=== PATIENT | female | born 1995 | race Two or more races ===

== ENCOUNTER 2018-09-11 14:33 | Inpatient (IN) | payer MEDICAID ==
[~2018-09-11] VITALS: Ht 172.7 cm; Wt 92.1 kg
[2018-09-11] MEDS ORDERED: PRENATAL (14:41)
[2018-09-11 17:22] LABS: CLARITY URINE CLEAR (CLEAR); COLOR URINE YELLOW (YELLOW); KETONES URINE NEGATIVE (NEGATIVE); LEUKOCYTE ESTERASE URINE 1+ (NEGATIVE); NITRITE URINE NEGATIVE (NEGATIVE); OCCULT BLOOD URINE NEGATIVE (NEGATIVE); PH URINE 7.5 (4.5-8.0); PROTEIN URINE NEGATIVE (NEGATIVE); SPECIFIC GRAVITY URINE 1.006 (1.005-1.030); UROBILINOGEN URINE 0.2 E.U./dL (0.2-1.0)
[2018-09-11 17:46] LABS: BASOPHILS % 0.2 % (0.0-2.0); HEMATOCRIT. 32.9 % (36.0-48.0); HEMOGLOBIN. 11.3 g/dL (12.0-16.0); LYMPHOCYTES % 14.4 % (20.0-50.0); MEAN CORPUSCULAR HEMOGLOBIN 29.4 pg (28.0-32.0); MEAN CORPUSCULAR VOLUME 86.1 fL (81.0-99.0); MEAN PLATELET VOLUME 9.8 fl (7.4-10.4); MONOCYTES % 6.2 % (2.0-8.0); NEUTROPHILS % 78.2 % (40.0-76.0); PLATELET 237 x1000/uL (130-400); RED BLOOD CELL COUNT 3.82 mill/uL (4.2-5.4)
[2018-09-11 17:53] LABS: CHLORIDE 110 mEq/L (98-107)
[2018-09-11 17:55] LABS: HCG SCREEN POSITIVE
[2018-09-11 18:16] LABS: B-HCG QUANTITATIVE 51509 mIU/mL (<3)
[2018-09-11] MEDS ORDERED: CEFTRIAXONE 1 G PREMIX 50 ML IV SCH (20:00)
[2018-09-12 02:00] VITALS: BP 145/72
[2018-09-12] MEDS ORDERED: DEXT 5%/LACTATED RINGERS 1,000 ML IV SCH (02:30)
[2018-09-12] MEDS ORDERED: BUTORPHANOL TARTRATE 2 MG/ML VIAL IV PRN (02:30)
[2018-09-12] MEDS: DEXT 5%/LR + PITOCIN 20UNITS/L 1,000 ML IV SCH ×2 (03:56→12:06)
[2018-09-12] MEDS ORDERED: MISOPROSTOL 200MCG TABLET PO NR (04:00)
[2018-09-12 04:10] VITALS: BP 144/70
[2018-09-12 05:00] VITALS: BP 133/72
[2018-09-12] MEDS ORDERED: METRONIDAZOLE 500 MG PREMIX 100 ML IV SCH (09:30)
[2018-09-12] MEDS ORDERED: METHYLERGONOVINE MALEATE 0.2 MG/ML IM SCH (09:30)
[2018-09-12] MEDS ORDERED: MISOPROSTOL 200MCG TABLET RC SCH (09:30)
[2018-09-12 12:36] VITALS: BP 126/69
[2018-09-12 12:42] LABS: BASOPHILS % 0.4 % (0.0-2.0); EOSINOPHILS % 0.2 % (0.0-5.0); HEMATOCRIT. 27.8 % (36.0-48.0); HEMOGLOBIN. 9.3 g/dL (12.0-16.0); LYMPHOCYTES % 13.1 % (20.0-50.0); MEAN CORPUSCULAR HEMOGLOBIN 29.1 pg (28.0-32.0); MEAN CORPUSCULAR VOLUME 86.9 fL (81.0-99.0); MEAN PLATELET VOLUME 9.8 fl (7.4-10.4); NEUTROPHILS % 78.3 % (40.0-76.0); PLATELET 214 x1000/uL (130-400)
== END 2018-09-12 14:45 | disposition home or self-care (01) | DRG 544 ==
LOC: ER 14:33 → 8WST 18:24 → CANRESERV 22:04 → ENRESERV 22:04 → CANBEDREQ 23:29 → ENRESERV 09-12 01:00
PROVIDERS: ADMIT Specialist; ATTEND Specialist
PROC: 10D17ZZ Extraction of Products of Conception, Retained, Via Natural or Artificial Opening (ICD-10-PCS; principal; 2018-09-12)
PROC: 3E0P7VZ Introduction of Hormone into Female Reproductive, Via Natural or Artificial Opening (ICD-10-PCS; 2018-09-12)
DX: O03.9 Complete or unspecified spontaneous abortion without complication (principal)
CPT/HCPCS: 36415; 76805; 76810; 84702; 84703; 86850; 86900; 88305; 88307; 99285; J0595; J0696; J2210; J2590; J3490; J7121

== ENCOUNTER 2020-04-27 16:45 | Observation (INO) | payer MEDICAID ==
[~2020-04-27] VITALS: Ht 175.3 cm; Wt 98.0 kg
[2020-04-27 16:47] VITALS: BP 170/98
== END 2020-04-27 20:13 | disposition home or self-care (01) ==
LOC: ER 16:45 → 8EST 17:09
PROVIDERS: ADMIT Specialist; ATTEND Specialist
DX: O9A.212 Injury, poisoning and certain other consequences of external causes complicating pregnancy, second trimester (principal); M54.5 Low back pain; Z3A.22 22 weeks gestation of pregnancy; Z98.82 Breast implant status; V43.52XA Car driver injured in collision with other type car in traffic accident, initial encounter; Y93.89 Activity, other specified; Y92.410 Unspecified street and highway as the place of occurrence of the external cause
CPT/HCPCS: 59025; 76805; 99284; G0378; 99281

== ENCOUNTER 2020-05-12 23:39 | Inpatient (IN) | payer MEDICAID ==
[~2020-05-12] VITALS: Ht 175.3 cm; Wt 9.5 kg
[2020-05-13] MEDS ORDERED: CARBOPROST TROMETHAMINE 250 MCG/ML AMPUL IM PRN (00:30)
[2020-05-13] MEDS ORDERED: BUTORPHANOL TARTRATE 2 MG/ML VIAL IV PRN (00:30)
[2020-05-13] MEDS ORDERED: NALOXONE HCL 0.4 MG/ML 1ML VIAL IM PRN (00:30)
[2020-05-13] MEDS ORDERED: METHYLERGONOVINE MALEATE 0.2 MG/ML IM PRN (00:30)
[2020-05-13] MEDS ORDERED: LIDOCAINE HCL 1% 20ML VIAL (Pyxis) INJ INFIL SCH (00:30)
[2020-05-13] MEDS ORDERED: MISOPROSTOL 100MCG TABLET VG SCH (00:30)
[2020-05-13] MEDS ORDERED: DEXT 5%/LR + PITOCIN 20UNITS/L 1,000 ML IV SCH (00:30)
[2020-05-13] MEDS ORDERED: PREN1TAB78 PO (00:31)
[2020-05-13] MEDS ORDERED: PENICILLIN G POTASSIUM 5 MMU in DEXT 5% WATER 100 ML IV SCH (01:00)
[2020-05-13] MEDS: LACTATED RINGERS 1,000 ML IV SCH ×2 (02:21→05:53)
[2020-05-13] MEDS ORDERED: MAGNESIUM 4 G PREMIX 100 ML IV SCH (02:45)
[2020-05-13] MEDS ORDERED: BETAMETHASONE ACET/BETAMET 30 MG/5 ML VIAL IM SCH (02:45)
[2020-05-13] MEDS ORDERED: MAGNESIUM 20 G PREMIX (L & D) 500 ML IV SCH ×2 (02:45→10:00)
[2020-05-13 02:49] LABS: CLARITY URINE CLEAR (CLEAR); COLOR URINE YELLOW (YELLOW); KETONES URINE NEGATIVE (NEGATIVE); LEUKOCYTE ESTERASE URINE TRACE (NEGATIVE); NITRITE URINE NEGATIVE (NEGATIVE); OCCULT BLOOD URINE NEGATIVE (NEGATIVE); PROTEIN URINE NEGATIVE (NEGATIVE); SPECIFIC GRAVITY URINE 1.005 (1.005-1.030); UROBILINOGEN URINE 0.2 E.U./dL (0.2-1.0)
[2020-05-13 02:53] LABS: BASOPHILS % 0.5 % (0.0-2.0); EOSINOPHILS % 0.7 % (0.0-5.0); HEMATOCRIT. 33.2 % (36.0-48.0); HEMOGLOBIN. 11.2 g/dL (12.0-16.0); LYMPHOCYTES % 14.3 % (20.0-50.0); MEAN CORPUSCULAR HEMOGLOBIN 29.3 pg (28.0-32.0); MEAN CORPUSCULAR VOLUME 87.1 fL (81.0-99.0); MONOCYTES % 5.9 % (2.0-8.0); NEUTROPHILS % 78.6 % (40.0-76.0); PLATELET 225 x1000/uL (130-400); RED BLOOD CELL COUNT 3.81 mill/uL (4.2-5.4); RED CELL DISTRIBUTION WIDTH 14.6 % (11.6-14.6)
[2020-05-13 03:00] LABS: CHLORIDE 108 mEq/L (98-107)
[2020-05-13 03:04] LABS: *AMPHETAMINES SCREEN URINE NEGATIVE (NEGATIVE); *BARBITURATES SCREEN URINE NEGATIVE (NEGATIVE); *BENZODIAZEPINES SCREEN URINE NEGATIVE (NEGATIVE); *COCAINE SCREEN URINE NEGATIVE (NEGATIVE); CANNABINOID URINE SCREEN NEGATIVE (NEGATIVE); METHADONE URINE SCREEN NEGATIVE (NEGATIVE); OPIATES URINE SCREEN NEGATIVE (NEGATIVE)
[2020-05-13 03:05] LABS: PHENCYCLIDINE URINE SCREEN NEGATIVE (NEGATIVE)
[2020-05-13 03:44] LABS: HEPATITIS B SURFACE ANTIGEN NEGATIVE
[2020-05-13 04:25] LABS: INR 0.9; PARTIAL THROMBOPLASTIN TIME 25.8 sec (23.4-31.0); PROTHROMBIN TIME 9.9 sec (9.6-11.0)
[2020-05-13] MEDS: PENICILLIN G POTASSIUM 2.5 MMU in DEXTROSE 5% WATER 50 ML IV SCH ×2 (05:52→09:30)
[2020-05-13] MEDS ORDERED: FENTANYL CITRATE/PF 50MCG/ML 2ML VIAL ONE ×2 (10:53→11:48)
[2020-05-13] MEDS ORDERED: PROPOFOL 200MG/20ML VIAL IV ONE (10:54)
[2020-05-13] MEDS ORDERED: ROCURONIUM BROMIDE 10MG/ML VIAL 5ML IV ONE (11:01)
[2020-05-13] MEDS ORDERED: SUCCINYLCHOLINE CHLORIDE 200MG/10ML IV ONE (11:01)
[2020-05-13] MEDS ORDERED: CEFAZOLIN SODIUM 1000MG/VIAL ONE (11:05)
[2020-05-13] MEDS ORDERED: MIDAZOLAM HCL 2 MG/2 ML VIAL ONE (11:15)
[2020-05-13] MEDS ORDERED: OXYTOCIN 10 UNITS/ML 1ML ONE (11:16)
[2020-05-13] MEDS ORDERED: ONDANSETRON HCL 4MG/2ML INJ ONE (11:18)
[2020-05-13] MEDS ORDERED: KETOROLAC 60MG/2ML VIAL IM ONE (11:18)
[2020-05-13] MEDS ORDERED: NEOSTIGMINE METHYLSULFATE 1MG/ML 10 ML VIAL ONE (11:29)
[2020-05-13] MEDS ORDERED: ONDANSETRON HCL 4MG/2ML INJ IV PRN ×2 (11:30→11:45)
[2020-05-13] MEDS ORDERED: HYDROMORPHONE HCL/PF 2MG/ML CPJ IV PRN (11:30)
[2020-05-13] MEDS ORDERED: GLYCOPYRROLATE 0.2 MG/ML 2ML VIAL ONE (11:30)
[2020-05-13] MEDS ORDERED: DIPHENHYDRAMINE 25MG CAPSULE PO PRN (11:45)
[2020-05-13] MEDS ORDERED: IBUPROFEN 400MG TABLET PO PRN (11:45)
[2020-05-13] MEDS ORDERED: BISACODYL 10MG SUPP PR PRN (11:45)
[2020-05-13 16:20] VITALS: BP 127/72
[2020-05-13 17:15] VITALS: BP 124/78
[2020-05-13] MEDS: HYDROCODONE/ACETAMINOPHEN 5/325MG TABLET PO PRN ×2 (18:54→23:44)
[2020-05-13] MEDS: DEXT 5%/LR + PITOCIN 20UNITS/L 1,000 ML IV SCH (19:20)
[2020-05-13 20:15] VITALS: BP 122/66
[2020-05-13] MEDS ORDERED: DOCUSATE SODIUM 100MG CAPSULE PO SCH (21:00)
[2020-05-13] MEDS: IBUPROFEN 800MG TABLET PO PRN (22:20)
[2020-05-13 23:52] VITALS: BP 119/72
[2020-05-14 03:00] VITALS: BP 121/70
[2020-05-14] MEDS: DEXT 5%/LR + PITOCIN 20UNITS/L 1,000 ML IV SCH (03:24)
[2020-05-14] MEDS: HYDROCODONE/ACETAMINOPHEN 5/325MG TABLET PO PRN (03:24)
[2020-05-14 07:46] VITALS: BP 122/68
[2020-05-14] MEDS: SIMETHICONE 80MG TABLET CHEW PO SCH ×4 (08:58→21:20)
[2020-05-14] MEDS: IBUPROFEN 800MG TABLET PO PRN ×3 (08:59→21:56)
[2020-05-14] MEDS: FERROUS SULFATE 325MG TABLET PO SCH ×3 (08:59→17:37)
[2020-05-14] MEDS: PRENATAL VIT/FE FUMARATE/FA TABLET PO SCH (08:59)
[2020-05-14 10:13] LABS: BASOPHILS % 0.2 % (0.0-2.0); HEMATOCRIT. 24.7 % (36.0-48.0); HEMOGLOBIN. 8.2 g/dL (12.0-16.0); LYMPHOCYTES % 12.3 % (20.0-50.0); MEAN CORPUSCULAR HEMOGLOBIN 29.2 pg (28.0-32.0); MONOCYTES % 8.5 % (2.0-8.0); PLATELET 175 x1000/uL (130-400); RED CELL DISTRIBUTION WIDTH 14.4 % (11.6-14.6)
[2020-05-14 16:08] VITALS: BP 124/74
[2020-05-14 22:00] VITALS: BP 114/64
[2020-05-15 04:53] VITALS: BP 112/67
[2020-05-15] MEDS ORDERED: IBUP-2030 PO (07:00)
[2020-05-15 07:30] VITALS: BP 140/76
[2020-05-15 08:19] LABS: BASOPHILS % 0.3 % (0.0-2.0); EOSINOPHILS % 0.9 % (0.0-5.0); HEMATOCRIT. 23.5 % (36.0-48.0); HEMOGLOBIN. 7.8 g/dL (12.0-16.0); LYMPHOCYTES % 23.6 % (20.0-50.0); MEAN CORPUSCULAR HEMOGLOBIN 29.3 pg (28.0-32.0); MEAN CORPUSCULAR VOLUME 88.3 fL (81.0-99.0); MONOCYTES % 7.5 % (2.0-8.0); NEUTROPHILS % 67.7 % (40.0-76.0); PLATELET 168 x1000/uL (130-400); RED BLOOD CELL COUNT 2.66 mill/uL (4.2-5.4); RED CELL DISTRIBUTION WIDTH 14.5 % (11.6-14.6)
[2020-05-15] MEDS: SIMETHICONE 80MG TABLET CHEW PO SCH (09:23)
[2020-05-15] MEDS: PRENATAL VIT/FE FUMARATE/FA TABLET PO SCH (09:23)
[2020-05-15] MEDS: FERROUS SULFATE 325MG TABLET PO SCH (09:23)
[2020-05-15] MEDS: IBUPROFEN 800MG TABLET PO PRN (09:24)
== END 2020-05-15 11:35 | disposition home or self-care (01) | DRG 540 ==
LOC: 8 EST LDRP 23:39 → OBSVTOIN 23:39 → 8EST 05-13 16:13
PROVIDERS: ADMIT Specialist; ATTEND Specialist
PROC: 10D00Z1 Extraction of Products of Conception, Low, Open Approach (ICD-10-PCS; principal; 2020-05-13)
PROC: 10903ZC Drainage of Amniotic Fluid, Therapeutic from Products of Conception, Percutaneous Approach (ICD-10-PCS; 2020-05-13)
DX: O69.0XX0 Labor and delivery complicated by prolapse of cord, not applicable or unspecified (principal); O32.0XX0 Maternal care for unstable lie, not applicable or unspecified; O45.92 Premature separation of placenta, unspecified, second trimester; O60.12X0 Preterm labor second trimester with preterm delivery second trimester, not applicable or unspecified; O34.211 Maternal care for low transverse scar from previous cesarean delivery; O42.912 Preterm premature rupture of membranes, unspecified as to length of time between rupture and onset of labor, second trimester; O36.4XX0 Maternal care for intrauterine death, not applicable or unspecified; O34.32 Maternal care for cervical incompetence, second trimester; O32.1XX0 Maternal care for breech presentation, not applicable or unspecified; O34.12 Maternal care for benign tumor of corpus uteri, second trimester; O98.32 Other infections with a predominantly sexual mode of transmission complicating childbirth; O76 Abnormality in fetal heart rate and rhythm complicating labor and delivery; R87.612 Low grade squamous intraepithelial lesion on cytologic smear of cervix (LGSIL); A63.0 Anogenital (venereal) warts; Z51.5 Encounter for palliative care; D25.9 Leiomyoma of uterus, unspecified; Z37.1 Single stillbirth; Z3A.23 23 weeks gestation of pregnancy
CPT/HCPCS: 36415; 76805; 80053; 80305; 81003; 83735; 84550; 85025; 85384; 86592; 86703; 86762; 86850; 86900; 87340; 88307; 99281; J0330; J0595; J0690; J0702; J1170; J1885; J2250; J2405; J2540; J2590; J2704; J2710; J3010; J3475; J3490; J7060; J7120; Q0163